=== PATIENT | male | born 1970 | race Caucasian/White ===

== ENCOUNTER 2017-04-20 10:28 | Outpatient (POV) | payer OTHER, SELFPAY | END 2017-04-20 12:05 | disposition home or self-care (01) | PROVIDERS: Visit Provider Podiatrist | DX: S92.504D Nondisplaced unspecified fracture of right lesser toe(s), subsequent encounter for fracture with routine healing (principal) | CPT/HCPCS: 99212; 73630 ==

== ENCOUNTER → 2017-05-25 08:07 | Outpatient (CLI) | payer OTHER, SELFPAY ==
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
== END ==
PROVIDERS: PCP Podiatrist; Visit Provider Podiatrist
DX: S92.504A Nondisplaced unspecified fracture of right lesser toe(s), initial encounter for closed fracture (principal)
CPT/HCPCS: 73630

== ENCOUNTER 2020-04-09 17:02 | Emergency (ER) | payer OTHER, SELFPAY ==
[2020-04-09 17:05] VITALS: BP 175/95; PULSE 92; RESP 16; TEMP 36.6; O2SAT 98; BMI 39.4
--- NOTE | 2020-04-09 17:34 | XR_ITS ---
PROCEDURE: XR HAND RT MIN 3V CLINICAL INDICATION: injury Pain COMPARISON: CR HANDR3 HAND-RT 3 VIEWS from 01/18/2015 FINDINGS: No fracture or dislocation. No lytic or blastic change. There is normal mineralization. The joint spaces are well-preserved. No significant degenerative/arthritic changes. No erosive changes evident. Other findings:None. IMPRESSION: No acute findings. Dictated by: Ronnell Mcmahon MD 04/09/2020 18:44 Ronnell Mcmahon MD in [place] 04/09/2020 18:44
--- NOTE | 2020-04-09 17:50 | XR_ITS ---
PROCEDURE: XR WRIST RT MIN 3V CLINICAL INDICATION: injury Posttraumatic pain COMPARISON: CR WRR3 WRIST-3 VIEWS-RT from 01/18/2015 CR XR HAND RT MIN 3V from 04/09/2020 FINDINGS: No fracture or dislocation. No lytic or blastic change. There is normal mineralization. The joint spaces are well-preserved. No significant degenerative/arthritic changes. No erosive changes evident. Other findings:None. IMPRESSION: No acute findings. Dictated by: Ronnell Mcmahon MD 04/09/2020 18:39 Ronnell Mcmahon MD in [place] 04/09/2020 18:39
--- NOTE | 2020-04-09 17:52 | HMH.EDGENADL ---
ED Disposition Clinical Impression: Subluxation of metacarpal (bone), proximal end of right hand, initial encounter Closed hamate fracture Qualifiers: Encounter type: initial encounter Hamate bone location: unspecified portion of hamate Fracture alignment: nondisplaced Laterality: right Qualified Code(s): S62.144A - Nondisplaced fracture of body of hamate [unciform] bone, right wrist, initial encounter for closed fracture Disposition: Home, Self-Care Condition on Discharge: Fair Instructions: DI for a Hand Fracture, How to Take Care of Your Splint Additional Instructions: Additional instructions for FRACTURE: Call [facility] hand surgery clinic tomorrow to make appointment for next Monday04/16/[address] Kala Washburn. You should make an appointment to be seen as soon as possible. Treat your splint like you would a cast: Do not get it wet (cover with a plastic bag while bathing or showering). If the splint feels too tight, you may loosen the connor wrap covering it, but do not remove the splint. You may ice the injury by applying an ice pack over the top of the splint, without removing the splint. Schedule an appointment to be seen at [facility] for follow-up. [phone] Return to an emergency department immediately if you have uncontrollable pain, loss of feeling or inability to move your injured extremity. Additional instructions for CONTROLLED SUBSTANCES: You have been prescribed a medication that is a controlled substance. Controlled substances include pain medications known as opiates and sedative nerve medications known as benzodiazepines. Tramadol, fioricet, and gabapentin are also controlled substances. Some common opiates include: Codeine (such as Tylenol #3) Hydrocodone (Vicodin, Lortab, Lorcet, [place]) Oxycodone (Percocet, Percodan, Oxycodone, Oxy IR) Some common benzodiazepines include: Diazepam (Valium) Lorazepam (Ativan) Alprazolam (Xanax) Clonazepam (Klonopin) Oxazepam (Serax) All of these controlled substances are highly addictive and frequently abused. Misuse can and frequently does lead to addiction as well as overdose and . Medication should be stored in a locked cabinet or other secure storage unit. Do not store the medication in a motor vehicle. Short term supplies, 3 days or less, are prescribed because of the highly addictive nature of the medication. Any of the controlled substance medication NOT taken should be disposed of properly and NOT SAVED. The recommended method of disposing of unused medications is: Place the medicines in a sealable plastic bag. If the medicine is a solid, crush it or add water to dissolve it. Add something undesirable (cat litter, coffee grounds, etc.) Dispose of sealed bag in household trash Do not flush or pour unused medicines down a sink or drain. Controlled substances should not be shared, given away or sold. Because of the addictive nature and frequent abuse, these medications are sometimes stolen. These medications should be kept in a safe place where they cannot be stolen. Do not keep them in your car or purse. Lost or stolen prescriptions for controlled substances WILL NOT BE REFILLED in this emergency department, regardless of whether a police report was filed. Prescriptions: Oxycodone HCl/Acetaminophen [Percocet 5/325mg tablet] 1 tab PO Q6HP PRN #20 tab PRN Reason: Moderate To Severe Pain Prescription Printed Referrals: Andrea Kirkland MD [Primary Care Provider] - - Critical Care Critical Care Time: No Attestation: On 04/09/20, the high probability of a clinically significant, sudden or life threatening deterioration of the following system(s) required my full and direct attention, intervention and personal management. The time I documented below is in addition to time spent performing reported procedures but includes the following listed in this critical care notation.
--- NOTE | 2020-04-09 18:01 | PC.NURSE ---
ice pack applied to rt hand
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
--- NOTE | 2020-04-09 20:03 | PC.NURSE ---
Calling [facility] MD's at this time.
[2020-04-09 20:05] VITALS: BP 164/94; PULSE 88; RESP 17; O2SAT 98
--- NOTE | 2020-04-09 20:25 | PC.NURSE ---
[facility] given call back number
[2020-04-09 20:30] VITALS: BP 159/89; PULSE 84; RESP 17; O2SAT 96
--- NOTE | 2020-04-09 20:37 | PC.NURSE ---
dr. aldridge is on the phone with at this time
[2020-04-09 20:46] VITALS: BP 164/82; PULSE 96; RESP 14; TEMP 36.6; O2SAT 97
--- NOTE | 2020-04-09 20:48 | PC.NURSE ---
dr. aldridge splinted the wrist. sling applied per md request
== END 2020-04-09 20:52 | disposition home or self-care (01) ==
PROVIDERS: Emergency Provider Emergency Medicine; PCP Internal Medicine Adolescent Medicine
DX: S62.144A Nondisplaced fracture of body of hamate [unciform] bone, right wrist, initial encounter for closed fracture (principal); W22.01XA Walked into wall, initial encounter; Y92.89 Other specified places as the place of occurrence of the external cause; I10 Essential (primary) hypertension; E78.5 Hyperlipidemia, unspecified; F17.210 Nicotine dependence, cigarettes, uncomplicated
CPT/HCPCS: 29125; 73110; 73130; 73200; 99283

== ENCOUNTER 2020-11-29 03:41 | Emergency (ER) | payer OTHER, SELFPAY ==
[2020-11-29 03:48] VITALS: BP 141/109; PULSE 88; RESP 16; TEMP 36.8; O2SAT 98; BMI 42.0
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
--- NOTE | 2020-11-29 04:30 | PC.NURSE ---
[place] [employer] here with pt
--- NOTE | 2020-11-29 05:47 | PC.NURSE ---
called radiology to check status of reports, [employer] operator will reach out to AD
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
--- NOTE | 2020-11-29 06:56 | PC.NURSE ---
received call from ana in rad who stated that [facility] radi[facility] was just now beginning to look at the scans.
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
--- NOTE | 2020-11-29 07:44 | PC.NURSE ---
abrasion to rt and lt knee, lt elbow and posterior scalp cleaned
[2020-11-29 07:45] VITALS: BP 155/74; PULSE 78; RESP 14; TEMP 36.6; O2SAT 96
== END 2020-11-29 07:53 | disposition home or self-care (01) ==
PROVIDERS: Emergency Provider Emergency Medicine
DX: S43.401A Unspecified sprain of right shoulder joint, initial encounter (principal); S06.0X0A Concussion without loss of consciousness, initial encounter; T74.11XA Adult physical abuse, confirmed, initial encounter; Y00.XXXA Assault by blunt object, initial encounter; E78.5 Hyperlipidemia, unspecified; I10 Essential (primary) hypertension; F17.210 Nicotine dependence, cigarettes, uncomplicated
CPT/HCPCS: 70450; 71046; 72125; 72170; 73030; 99283

== ENCOUNTER → 2020-12-23 15:35 | Outpatient (CLI) | payer OTHER, SELFPAY ==
--- NOTE | 2020-12-23 15:36 | MR_ITS ---
PROCEDURE: MR SHOULDER RT WO CON CLINICAL INDICATION: right shoulder pain; evaluate for rotator cuff COMPARISON: CR XR SHOULDER RT MIN 2V from 11/29/2020 TECHNIQUE: Routine multiplanar multi echo sequences are performed without gadolinium enhancement. FINDINGS: There is moderate acromioclavicular hypertrophy. There is severe subacromial stenosis at 3 mm. There is a high-riding humeral head. There is mild posterior subluxation of the humeral head is well. There is complete tear of the supraspinatus and infraspinatus tendons with retraction of the musculotendinous fibers. Subscapularis and teres minor tendons appear intact. Fluid is present within the bicipital tendon sheath. The long head of the biceps tendon does appear intact. The no obvious labral tear. There is a small shoulder joint effusion. Small amount fluid is present in the subdeltoid region. Small amount of fluid is interspersed in the infraspinatus muscle tendinous fibers with small amount fluid also noted in the subcoracoid region. IMPRESSION: Complete tears of the supraspinatus and infraspinatus tendons with retraction of the musculotendinous fibers Shoulder joint effusion with superior and mild posterior location of the humeral head. Tenosynovitis of the bicipital tendon Dictated by: Ronnell Mcmahon MD 12/24/2020 14:40 Ronnell Mcmahon MD in [place] 12/24/2020 14:40
== END ==
PROVIDERS: PCP Nurse Practitioner Family; Visit Provider Orthopaedic Surgery
DX: S49.91XA Unspecified injury of right shoulder and upper arm, initial encounter (principal)
CPT/HCPCS: 73221

== ENCOUNTER 2021-01-11 20:02 | Emergency (ER) | payer OTHER, SELFPAY ==
[2021-01-11 21:30] VITALS: BP 177/101; PULSE 75; RESP 20; TEMP 36.9; O2SAT 99; BMI 37.5
--- NOTE | 2021-01-11 22:29 | HMH.EDUTC ---
[facility] [place] Disposition Clinical Impression: Viral upper respiratory illness Disposition: Home, Self-Care Condition on Discharge: Good Instructions: DI for COVID-19 (Suspected or Confirmed ), Preventing the Spread of Coronavirus Discharge Instructions Additional Instructions: *Monitor Temp, Over the counter Motrin or Tylenol as directed/as needed Tylenol every 4 hours and Motrin every 6 hours (as long as your family doctor has told you that you can take it) for fever or pa-in. and straight to ER if unable to lower temp less than 101.0 after medication given *Warm salt water gargles may help to soothe the throat *Throat Lozenges *Warm fluids like tea with honey may help to soothe the throat *Sleep elevated *Humidifier/Vaporizer Your throat swab was sent for culture. Those results are typically sent to your primary care. Be sure to follow up in 2-3 days with your family doctor/primary care physician if no improvement so they can review those result and treat if necessary. If you don?t have a primary care doctor, I recommend you get one but in the mean time, you will have to return to a walk in clinic Follow up IMMEDIATELY for new or worsening symptoms or no Noticeable improvement over the next 48-72 hours. 911 for difficulty breathing or swallowing You were tested for today for COVID19 your test result should be back in the next 24-48 hours, Check the [facility] Portal to see if your test results are back in the next 48 it may say detected that means your result is positive.You was given handout instructions on how log on and see your results. If you do not have internet access you may call the [facility] for your results [phone] You was given a handout with instructions for Self Quarantine and Self isolation for while you wait on test results and what to do if they are positive If you are positive the Health Dept will be contacting you also Make sure to take your Vitamins Vit. C Vit D and Zinc if you can take them Prescriptions: guaiFENesin [Mucinex 600mg tablet] 1 - 2 tab PO BID PRN #10 tab PRN Reason: Congestion Transmission Status: Pending to [id number] Referrals: Provider,Referral, MD [Primary Care Provider] - As needed Forms: Work/School Release Time of Disposition: 22:51 Medical Decision Making - Felix Inquiry Pt receiving controlled substance: No Felix was queried for this patient: No Vital Signs: 01/11/21 21:30 Temperature 98.4 F Temperature Source Oral Pulse Rate [Left Brachial] 75 Respiratory Rate 20 Blood Pressure [Left Arm] 177/101 H Blood Pressure Mean [Left Arm] 126 Blood Pressure Source [Left Arm] Automatic Cuff Blood Pressure Position [Left Arm] Sitting 02 Sat by Pulse Oximetry 99 Oxygen Delivery Method Room Air - Lab Data Lab results reviewed: Yes: I reviewed the patient's lab results. Lab Results 01/11/21 22:32: Strep Scn Rapid Clinic Negative Orders (Tests/Meds): ORDERS Category Date Time Status Covid-19 Nasal PCR ([facility]) Routine Lab 01/11/21 21:35 Received Strep Screen Confirmation Stat Micro 01/11/21 22:32 Received Medical Decision Narrative: Patient blood pressure elevated discussed with patient about transfer to the ED for further evaluation and treatment and patient declined States that he was here for COVID test and had appointment tomorrow with PCP to have his blood pressure checked and treated Blood pressure rechecked and was 156/96 [facility] [place] HPI - General Stated complaint: covid test Time Seen by Provider: 01/11/21 22:30 Mode of Arrival: Ambulatory Source of Information: Patient Limitations: No Limitations Description of Symptoms (Recalled from Triage Doc. by RN): PATIENT C/O HEADACHE, SORE THROAT, AND COUGH SINCE MONDAY. REQUESTING COVID TEST HEENT Symptoms (Recalled from RN notes): Yes Resp Symptoms (Recalled from RN notes): Yes Skin Symptoms (Recalled from RN notes): No MS Symptoms (Recalled from RN notes): No Functional Status (Recalled from RN notes)
[2021-01-11 22:46] LABS: UTC Strep Screen (Rapid) Negative (Negative)
[2021-01-11 22:48] VITALS: BP 156/96
[2021-01-11 22:49] VITALS: BP 156/96; PULSE 75; RESP 20; TEMP 36.9; O2SAT 99
== END 2021-01-11 22:58 | disposition home or self-care (01) ==
PROVIDERS: Emergency Provider Nurse Practitioner
DX: U07.1 COVID-19 (principal); J06.9 Acute upper respiratory infection, unspecified; E78.5 Hyperlipidemia, unspecified; I10 Essential (primary) hypertension; F17.210 Nicotine dependence, cigarettes, uncomplicated; Z79.899 Other long term (current) drug therapy
CPT/HCPCS: 87880; 99203; G0463; U0003

== ENCOUNTER 2021-09-04 11:25 | Emergency (ER) | payer OTHER, SELFPAY ==
[2021-09-04 12:00] VITALS: BP 148/96; PULSE 118; RESP 18; TEMP 36.8; O2SAT 97; BMI 37.5
--- NOTE | 2021-09-04 12:08 | HMH.EDUTC ---
[facility] Clinical Impression: Viral syndrome Disposition: Home, Self-Care Condition on Discharge: Good Instructions: DI for Viral Syndrome Additional Instructions: Drink plenty of fluids. Take tylenol or ibuprofen for pain or fever. Take the medications as directed. Follow up with your regular doctor. GO TO THE ER FOR ANY WORSENING SYMPTOMS Prescriptions: Ondansetron [Zofran 4mg ODT] 4 mg PO Q8HP PRN #9 tab PRN Reason: Nausea Transmission Status: Received by [id number] Azithromycin [Z-Govind 250mg Tab*] 250 mg PO UD DOSE PK #6 tab Transmission Status: Received by [id number] Referrals: Provider,Referral, MD [Primary Care Provider] - Forms: Work/School Release Time of Disposition: 13:37 Medical Decision Making - Medical Records Medical records reviewed: No: I reviewed the patient's medical records. - Felix Inquiry Pt receiving controlled substance: No Vital Signs: 09/04/21 12:00 09/04/21 13:07 Temperature 98.3 F 98.3 F Temperature Source Oral Pulse Rate 118 H Pulse Rate [Left Radial] 118 H Respiratory Rate 18 18 Blood Pressure 148/96 H Blood Pressure [Right Arm] 148/96 H Blood Pressure Mean [Right Arm] 113 02 Sat by Pulse Oximetry 97 - Lab Data Lab results reviewed: Yes: I reviewed the patient's lab results. Lab Results 09/04/21 12:11: Group A Strep Rapid Negative 09/04/21 12:14: Influenza Type A Ag Negative, Influenza Type B Ag Negative 09/04/21 13:43: Chlamy pneumoniae PCR Not detected, Adenovirus (PCR) Not detected, B. pertussis DNA (PCR) Not detected, Coronavirus OC43 (PCR) Not detected, Coronavirus HKU1 (PCR) Not detected, Coronavirus 229E (PCR) Not detected, SARS-CoV-2 (PCR) Not detected, Coronavirus NL63 (PCR) Not detected, Human Metapneumovir PCR Not detected, Influenza A (H1) PCR Not detected, Influ A (H1N1/09) PCR Not detected, Influenza A (H3) PCR Not detected, Influenza Type A (PCR) Not detected, Influenza Type B (PCR) Not detected, M. pneumoniae (PCR) Not detected, Parainfluenza 1 (PCR) Not detected, Parainfluenza 2 (PCR) Not detected, Parainfluenza 3 (PCR) Not detected, Parainfluenza 4 (PCR) Not detected, RSV (PCR) Not detected, Entero/Rhino (PCR) Not detected Orders (Tests/Meds): ORDERS Category Date Time Status Strep Screen Confirmation Stat Micro 09/04/21 12:11 Received [facility] - General Stated complaint: fever, LLAMAS, weakness Time Seen by Provider: 09/04/21 12:08 Mode of Arrival: Ambulatory Description of Symptoms (Recalled from Triage Doc. by RN): pt states he overall feels sick. has not been around anyone that is sick. high fever, headache that will not go away. took tyleol, vitamin c and iron this am at 1030 HEENT Symptoms (Recalled from RN notes): Yes Resp Symptoms (Recalled from RN notes): No Skin Symptoms (Recalled from RN notes): No MS Symptoms (Recalled from RN notes): No Functional Status (Recalled from RN notes): wnl - History of Present Illness Provider Complaint: For the past 3 days he has had a cough, body aches, chills, and a headache. - Related Data Previous Rx's Medication Instructions Recorded naproxen 500 mg tablet 500 mg PO BID #30 tab 12/01/20 guaiFENesin [Mucinex 600mg tablet] 1 - 2 tab PO BID PRN #10 tab 01/11/21 hydrochlorothiazide 12.5 mg capsule 12.5 mg PO DAILY #30 cap 01/12/21 Azithromycin [Z-Govind 250mg Tab*] 250 mg PO UD DOSE PK #6 tab 09/04/21 Ondansetron [Zofran 4mg ODT] 4 mg PO Q8HP PRN #9 tab 09/04/21 Allergies Allergy/AdvReac Type Severity Reaction Status Date / Time No Known Allergies Allergy Verified 01/08/21 13:15 - Worker's Comp Is this a Worker's Comp case?: No Is this an [facility] Worker's Comp?: No Is this a [place] Worker's Comp?: No [facility] History - Hepatitis A Screen Drug use history?: No High risk sexual behaviors?: No History of sexually transmitted infection?: No Currently employed?: No Childcare worker?: No Do you have indoor plumbing?: Ye
[2021-09-04 12:31] LABS: UTC Influenza A Antigen Negative (Negative); UTC Influenza B Antigen Negative (Negative)
[2021-09-04 13:07] VITALS: BP 148/96; PULSE 118; RESP 18; TEMP 36.8
[2021-09-04 13:28] LABS: Strep Scrn Group A (Rapid) Negative (Negative)
[2021-09-04 13:56] LABS: Adenovirus,PCR Not Detected (NotDetected); Bordetella Pertussis Not Detected (NotDetected); Chlamydophila Pneumoniae, PCR Not Detected (NotDetected); Coronavirus 19, PCR Not Detected (NotDetected); Coronavirus 229E Not Detected (NotDetected); Coronavirus NL63 Not Detected (NotDetected); Coronavirus OC43 Not Detected (NotDetected); Coronovirus HKU1,PCR Not Detected (NotDetected); Human Metapneumovirus Not Detected (NotDetected); Influenza A, PCR Not Detected (NotDetected); Influenza AH1, 2009 Not Detected (NotDetected); Influenza AH1, PCR Not Detected (NotDetected); Influenza AH3,PCR Not Detected (NotDetected); Influenza B, PCR Not Detected (NotDetected); Mycoplasma Pneumoniae, PCR Not Detected (NotDetected); Parainfluenza 1, PCR Not Detected (NotDetected); Parainfluenza 2, PCR Not Detected (NotDetected); Parainfluenza 3, PCR Not Detected (NotDetected); Parainfluenza 4, PCR Not Detected (NotDetected); Respiratory Syncytial Virus Not Detected (NotDetected); Rhinovirus/Enterovirus Not Detected (NotDetected)
== END 2021-09-04 13:44 | disposition home or self-care (01) ==
PROVIDERS: Emergency Provider Nurse Practitioner Family
DX: B34.9 Viral infection, unspecified (principal); Z20.822 Contact with and (suspected) exposure to COVID-19; R51.9 Headache, unspecified; E78.5 Hyperlipidemia, unspecified; F17.210 Nicotine dependence, cigarettes, uncomplicated
CPT/HCPCS: 87430; 87581; 87632; 87798; 87804; 99213; C9803; G0463; U0003; U0005

== ENCOUNTER 2022-07-07 13:34 | Emergency (ER) | payer OTHER, SELFPAY ==
[2022-07-07 13:39] VITALS: BP 182/103; PULSE 91; RESP 16; TEMP 36.8; O2SAT 97; BMI 36.0
[2022-07-07 14:01] VITALS: BP 141/98; PULSE 78; O2SAT 95
--- NOTE | 2022-07-07 14:18 | PC.NURSE ---
Wound irrigated with Hibiclens/Saline. Pt tolerated well. Bleeding stopped without further intervention.
--- NOTE | 2022-07-07 14:26 | HMH.EDGENADL ---
Discharge Plan Disposition Patient Disposition: Home, Self-Care Prescriptions Prescriptions: No Action naproxen 500 mg tablet 500 mg PO BID Qty: 30 0RF hydrochlorothiazide 12.5 mg capsule 12.5 mg PO DAILY Qty: 30 1RF azithromycin 250 MG tablet 250 mg PO UD DOSE PK Qty: 6 0RF Rx Instructions: Take two (2) tablets today, then one (1) tablet days #2 thru #5 ondansetron 4 MG tablet,disintegrating 4 mg PO Q8HP PRN (Reason: Nausea) Qty: 9 0RF guaifenesin 600 MG tablet extended release 12hr 1 - 2 tab PO BID PRN (Reason: Congestion) Qty: 10 0RF Referrals Follow up/Referrals: Provider,Referral, MD [Primary Care Provider] - See instructions Activity Restrictions/Add. Instructions Additional Instructions/Restrictions: You had a soft tissue avulsion with significant venous oozing was treated with Surgicel. Please cut off any excessive Surgicel tonight when you are changing your dressings and otherwise keep a Band-Aid over top of this Surgicel naturally fall off. I would advise that you do not pull it off aggressively for the remainder of this night as you may be remove the clot formation that is formed and bleeding may return. If that happens please put direct pressure on the wound for 15 minutes and return to the emergency department if you are concerned about ongoing bleeding. Specifically this is not consistent with arterial bleeding and is a low pressure venous state. Clinical Impressions Clinical Impression: Avulsion of soft tissue of left lower leg Discharge ED Provider: Linda Duran General Adult HPI General Chief complaint: Extremity Injury, Lower Stated complaint: AO@Work 07/07 1300 LT leg puncture Time Seen by Provider: 07/07/22 14:26 Mode of Arrival: Ambulatory Source of Information: Patient Limitations: No Limitations Description of Symptoms (Recalled from ER Triage Doc. by RN): Presents after LLE injury d/t air conditioner approx. 20 min lpta. Bleeding controlled with pressure dressing. Denies blood thinners. Denies pain. Last Tetanus x 4 yrs. 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 Patient denies being on any anticoagulant or any antiplatelet therapy. No pain. Tetanus is unknown Related Data Previous Rx's Medication Instructions Recorded naproxen 500 mg tablet 500 mg PO BID #30 tabs 12/01/20 guaifenesin 600 mg tablet, 1 - 2 tab PO BID PRN Congestion 01/11/21 extended release 12 hr #10 tabs hydrochlorothiazide 12.5 mg capsule 12.5 mg PO DAILY #30 caps 01/12/21 azithromycin 250 mg tablet 250 mg PO UD DOSE PK #6 tabs 09/04/21 ondansetron 4 mg disintegrating 4 mg PO Q8HP PRN Nausea #9 tabs 09/04/21 tablet Allergies Allergy/AdvReac Type Severity Reaction Status Date / Time No Known Allergies Allergy Verified 01/08/21 13:15 [facility] Disclaimer: The information contained in this section may have been updated after the patient was seen, as this information can be updated by other users. Social History Smoking Status: Current every day smoker tobacco type: cigarettes packs per day: 1 alcohol intake: never substance use type: denies use current occupational status: employed Travel in the last 8 weeks: None ROS Obtained: Yes All systems reviewed & no additional complaints except as documented Physical Exam General General appearance: alert and in no apparent distress Respiratory Respiratory exam: Present normal lung sounds bilaterally; Absent respiratory distress, wheezes, stridor or accessory muscle use Cardiovascular Cardiovascular exam: Present regular rate; Absent tachycardia Extremities Exam Extremities exam:
[2022-07-07 14:31] VITALS: BP 158/92; PULSE 76; O2SAT 96
--- NOTE | 2022-07-07 14:34 | PC.NURSE ---
er at bedside
--- NOTE | 2022-07-07 14:35 | PC.NURSE ---
pt states no complaints at this time, at bedside
[2022-07-07 15:13] VITALS: BP 172/110; PULSE 67; RESP 15; TEMP 36.7
== END 2022-07-07 15:17 | disposition home or self-care (01) ==
PROVIDERS: Emergency Provider Student in an Organized Health Care Education/Training Program
DX: S81.812A Laceration without foreign body, left lower leg, initial encounter (principal); F17.210 Nicotine dependence, cigarettes, uncomplicated; W22.8XXA Striking against or struck by other objects, initial encounter; Z23 Encounter for immunization
CPT/HCPCS: 90471; 90715; 99283; 99284

== ENCOUNTER 2022-11-28 12:27 | Emergency (ER) | payer OTHER, SELFPAY ==
--- NOTE | 2022-11-28 12:28 | XR_ITS ---
FINAL REPORT CLINICAL HISTORY: FALL FINDINGS: 2 views of the left shoulder were obtained. There is no prior exam for comparison. There is no fracture or dislocation. There is mild degenerative joint disease. Soft tissues are normal. IMPRESSION: No acute osseous abnormality of the left shoulder. Reviewed, Interpreted and Dictated by Herminia Michaud MD Transcribed by Lilian Rondon Authenticated and [facility]
--- NOTE | 2022-11-28 12:30 | XR_ITS ---
FINAL REPORT CLINICAL HISTORY: FALL FINDINGS: LEFT CLAVICLE 2 views of the left clavicle were obtained. There is no acute fracture or dislocation. There are mild degenerative changes of the acromioclavicular joint. There is no evidence of AC joint separation. Soft tissues are without acute abnormality. IMPRESSION: No acute bony abnormality or evidence of AC joint separation. Reviewed, Interpreted and Dictated by Herminia Michaud MD Transcribed by Lilian Rondon Authenticated and [facility]
[2022-11-28 12:35] VITALS: BP 209/105; PULSE 88; RESP 20; TEMP 37.2; O2SAT 98; BMI 33.9
--- NOTE | 2022-11-28 13:23 | EXP.UTC ---
Discharge Plan Disposition Patient Disposition: Home, Self-Care Condition: Good Prescriptions Prescriptions: New hydrochlorothiazide 12.5 mg capsule 12.5 mg PO DAILY Qty: 30 0RF Rx Instructions: for hypertension No Action naproxen 500 mg tablet 500 mg PO BID Qty: 30 0RF hydrochlorothiazide 12.5 mg capsule 12.5 mg PO DAILY Qty: 30 1RF azithromycin 250 MG tablet 250 mg PO UD DOSE PK Qty: 6 0RF Rx Instructions: Take two (2) tablets today, then one (1) tablet days #2 thru #5 ondansetron 4 MG tablet,disintegrating 4 mg PO Q8HP PRN (Reason: Nausea) Qty: 9 0RF guaifenesin 600 MG tablet extended release 12hr 1 - 2 tab PO BID PRN (Reason: Congestion) Qty: 10 0RF Referrals Follow up/Referrals: Mitch Blue DO [Staff Physician] - See instructions (Call office for appointment) Provider,Referral, MD [Primary Care Provider] - See instructions Activity Restrictions/Add. Instructions Additional Instructions/Restrictions: Over the counter Tylenol may help with pain and discomfort *RICE, Rest the extremity, Ice 15-20 minutes 3-4 times daily, Compress- wear the connor wrap as discussed as much as possible to help reduce swelling and pain, Elevate the extremity when at rest *Sling is for support and help control swelling, use it except in the shower. Be sure that is not to tight but not to loose either *Elevate when resting? *Ibuprofen 600-800mg every 6-8 hours as needed for pain an inflammation. If need something more can take Tylenol in between doses of Ibuprofen to help Immediately follow up with your family doctor for new or worsening of symptoms, or no noticeable improvement over the next 3-5 days Follow up with Orthopedics and/or your Family Doctor for further evaluation and testing Follow up with your Family Doctor for further treatment of high blood pressure Clinical Impressions Clinical Impression: Left shoulder pain Qualifiers: Chronicity: unspecified Qualified Code(s): M25.512 - Pain in left shoulder Instructions Patient Instructions: How to Use a Sling, DI for Shoulder Pain Discharge ED Provider: Anali Rodrigues [facility] General Stated complaint: AO 11/21 fall, left shoulder pain Mode of Arrival: Ambulatory Source of Information: Patient Limitations: No Limitations Time Seen by Provider: 11/28/22 12:45 Description of Symptoms (Recalled from Triage Doc. by RN): PATIENT C/O LEFT SHOULDER PAIN AND DECREASED ROM SINCE FALLING APPROX 1 WEEK AGO. HEENT Symptoms (Recalled from RN notes): No Resp Symptoms (Recalled from RN notes): No Skin Symptoms (Recalled from RN notes): No MS Symptoms (Recalled from RN notes): Yes Functional Status (Recalled from RN notes): WNL History of Present Illness Provider Complaint: Patient states that he went to sit on a cooler last week and it turned over and he fell onto his left shoulder States that since the fall he has been having pain in his left shoulder and hurts when he tries to raise it up Denies any other injury States that also he was on medication for HTN but he had a change in insurance and he hasnt been back to the Doctor to get more Related Data Previous Rx's Medication Instructions Recorded naproxen 500 mg tablet 500 mg PO BID #30 tabs 12/01/20 guaifenesin 600 mg tablet, 1 - 2 tab PO BID PRN Congestion 01/11/21 extended release 12 hr #10 tabs hydrochlorothiazide 12.5 mg capsule 12.5 mg PO DAILY #30 caps 01/12/21 azithromycin 250 mg tablet 250 mg PO UD DOSE PK #6 tabs 09/04/21 ondansetron 4 mg disintegrating 4 mg PO Q8HP PRN Nausea #9 tabs 09/04/21 tablet hydrochlorothiazide 12.5 mg capsule 12.5 mg PO DAILY #30 caps 11/28/22 Allergies Allergy/AdvReac Type Severity Reaction Status Date / Time No Known Allergies Allergy Verified 01/08/21 13:15 Worker's Comp Is this a Worker's Comp case?: No [facility] Disclaimer: The information contained in this section may have been updated after the patient was seen,
[2022-11-28 13:54] VITALS: BP 209/105; PULSE 88; RESP 20; TEMP 37.2; O2SAT 98
== END 2022-11-28 14:17 | disposition home or self-care (01) ==
PROVIDERS: Emergency Provider Nurse Practitioner
DX: M25.512 Pain in left shoulder (principal); W17.89XA Other fall from one level to another, initial encounter; F17.210 Nicotine dependence, cigarettes, uncomplicated
CPT/HCPCS: 73000; 73030; 99212; 99214; G0463

== ENCOUNTER 2023-01-05 11:19 | Emergency (ER) | payer OTHER, SELFPAY ==
[2023-01-05 11:40] VITALS: BP 183/107; PULSE 70; RESP 18; TEMP 36.9; O2SAT 98; BMI 34.4
--- NOTE | 2023-01-05 12:13 | EXP.UTC ---
Discharge Plan Disposition Patient Disposition: Home, Self-Care Condition: Good Prescriptions Prescriptions: New bacitracin 500 unit/gram ointment 1 applic topical TID 10 Days Qty: 30 0RF Rx Instructions: apply to abrasion on hand No Action naproxen 500 mg tablet 500 mg PO BID Qty: 30 0RF hydrochlorothiazide 12.5 mg capsule 12.5 mg PO DAILY Qty: 30 1RF azithromycin 250 MG tablet 250 mg PO UD DOSE PK Qty: 6 0RF Rx Instructions: Take two (2) tablets today, then one (1) tablet days #2 thru #5 ondansetron 4 MG tablet,disintegrating 4 mg PO Q8HP PRN (Reason: Nausea) Qty: 9 0RF guaifenesin 600 MG tablet extended release 12hr 1 - 2 tab PO BID PRN (Reason: Congestion) Qty: 10 0RF hydrochlorothiazide 12.5 mg capsule 12.5 mg PO DAILY Qty: 30 0RF Rx Instructions: for hypertension Referrals Follow up/Referrals: Provider,Referral, MD [Primary Care Provider] - See instructions Activity Restrictions/Add. Instructions Additional Instructions/Restrictions: Suture instructions: ?You have required stitches Please read the following instructions so you know how to care for them: ?1. Keep wound area dry for the first 24 hours. 2?? May clean gently with mild soap and water, after 48 hours to prevent crusting over suture knots. 3. You may shower if your provider gives permission but do not take a bath until the skin is healed.. 4. Never leave a wet dressing or Band-Aid on your stitches as this allows bacteria to reach the area and may cause infection. Band-aids can cause the wound to sweat and not recommended to wear for long periods of time Watch for signs of infection: ? Increasing redness, tenderness or warmth around the suture site ? Unusual swelling around the site ? Appearance of pus around each suture or any red streaks ? Fever If you develop any of the above signs or symptoms of infection, Follow up with Family Physician immediately 5. Suture removal in _12-14___days 6. Return to [facility] or follow up with family doctor for removal. This can be done by any medical provider dur?ing regular hours on Monday through Monday, by appointment. Clinical Impressions Clinical Impression: Laceration Instructions Patient Instructions: DI for Laceration Repair, DI for Laceration Repair -- Simple, DI for Abrasion Discharge ED Provider: Anali Rodrigues [facility] [place] H[place] General Stated complaint: AO8@work, Lac above Lt knee Mode of Arrival: Ambulatory Source of Information: Patient Limitations: No Limitations Time Seen by Provider: 01/05/23 11:55 Description of Symptoms (Recalled from Triage Doc. by RN): PATIENT C/O LACERATION TO RIGHT LEG ABOVE KNEE AFTER CUTTING IT WITH A GLOBE CHANGER APPROX 30 MINUTES BEER BREWER HEENT Symptoms (Recalled from RN notes): No Resp Symptoms (Recalled from RN notes): No Skin Symptoms (Recalled from RN notes): Yes MS Symptoms (Recalled from RN notes): No Functional Status (Recalled from RN notes): WNL History of Present Illness Provider Complaint: Patient states that he was using a sweat box attendant cutting up a box and the sweat box attendant slipped and cut him on the top of his right knee States that also earlier today he got an an abrasion on the top of his right hand he wanted checked too Up to date on tetanus Related Data Previous Rx's Medication Instructions Recorded naproxen 500 mg tablet 500 mg PO BID #30 tabs 12/01/20 guaifenesin 600 mg tablet, 1 - 2 tab PO BID PRN Congestion 01/11/21 extended release 12 hr #10 tabs hydrochlorothiazide 12.5 mg capsule 12.5 mg PO DAILY #30 caps 01/12/21 azithromycin 250 mg tablet 250 mg PO UD DOSE PK #6 tabs 09/04/21 ondansetron 4 mg disintegrating 4 mg PO Q8HP PRN Nausea #9 tabs 09/04/21 tablet hydrochlorothiazide 12.5 mg capsule 12.5 mg PO DAILY #30 caps 11/28/22 bacitracin 500 unit/gram topical 1 applic topical TID 10 days #30 01/05/23 ointment grams Allergies Allergy/AdvReac Type Severity Reaction Status Jamir
--- NOTE | 2023-01-05 12:28 | PC.NURSE ---
WOUND TO RIGHT HAND CLEANED WITH HIBICLENSE AND STERILE WATER AND DRY, NON-STICK DRESSING APPLIED
[2023-01-05 12:36] VITALS: BP 183/107; PULSE 70; RESP 18; TEMP 36.9; O2SAT 98
== END 2023-01-05 12:39 | disposition home or self-care (01) ==
PROVIDERS: Emergency Provider Nurse Practitioner
DX: S81.011A Laceration without foreign body, right knee, initial encounter (principal); F17.210 Nicotine dependence, cigarettes, uncomplicated; Z23 Encounter for immunization; W26.0XXA Contact with knife, initial encounter
CPT/HCPCS: 12001; 99213; 99214; G0463

== ENCOUNTER 2023-06-05 11:51 | Emergency (ER) | payer OTHER, SELFPAY ==
--- NOTE | 2023-06-05 12:06 | ED_ITS ---
Discharge Plan Disposition Patient Disposition: Xfer Other Condition: Good Prescriptions Prescriptions: No Action hydrochlorothiazide 12.5 mg capsule 12.5 mg PO DAILY Qty: 30 0RF Rx Instructions: for hypertension Referrals Follow up/Referrals: Provider,Referral, MD [Primary Care Provider] - See instructions Activity Restrictions/Add. Instructions Additional Instructions/Restrictions: Go to the [facility] to be evaluated by Dr. Garcia. They want you to come straight there right now. GO TO THE ER FOR ANY WORSENING SYMPTOMS OR CONCERNS. Clinical Impressions Clinical Impression: Infection of left eye Discharge ED Provider: Nahid Chin [facility] [place] HPI General Stated complaint: left eye pain , no accident Time Seen by Provider: 06/05/23 12:05 History of Present Illness Provider Complaint: He states that he has had left eye pain and swelling around the eye for the past 4 days. He states that before the pain and swelling started he felt like he had a foreign body in his eye. Related Data Previous Rx's Medication Instructions Recorded hydrochlorothiazide 12.5 mg capsule 12.5 mg PO DAILY #30 caps 11/28/22 Allergies Allergy/AdvReac Type Severity Reaction Status Date / Time No Known Allergies Allergy Verified 06/05/23 12:19 [facility] Disclaimer: The information contained in this section may have been updated after the patient was seen, as this information can be updated by other users. Social History Smoking Status: Current every day smoker tobacco type: cigarettes packs per day: 1 alcohol intake: never substance use type: denies use current occupational status: employed Travel in the last 8 weeks: None ROS Obtained: Yes All systems reviewed & no additional complaints except as documented Constitutional Constitutional: Denies chills and Denies fever(s) Eyes Eyes: Reports as per HPI, Reports eye discharge, Denies loss of vision and Reports eye pain ENT Ears, Nose, Mouth, and Throat: Denies dizziness, Denies otalgia and Denies sore throat Cardiovascular Cardiovascular: Denies chest pain Respiratory Respiratory: Denies shortness of breath, Denies chest congestion, Denies cough, Denies stridor and Denies wheezing Gastrointestinal Gastrointestingal: Denies nausea or vomiting Musculoskeletal Musculoskeletal: Reports system reviewed and no additional complaints, except as documented and Denies arthralgias Integumentary/Breasts Skin/Breast: Denies rash Neurologic Neurologic: Denies dizziness, Denies loss of vision and Denies paresthesias Allergic/Immunologic Allergic/Immunologic: Denies wheezing Physical Exam General General appearance: alert and in no apparent distress Head Head exam: atraumatic, normocephalic and normal inspection Eye Eye exam: Present PERRL and EOMI Expanded Eye Exam Eyelids: left: erythema and right: normal inspection Pupils: Left: size (2), Right: size (2) and Bilateral: regular, round and reactive Sclera/Conjunctival: left: injection, exudate and tenderness and right: normal inspection ENT ENT exam: Present normal exam, normal oropharynx, mucous membranes moist, TM's normal bilaterally and normal external ear exam Neck Neck exam: Present normal inspection, full ROM and trachea midline; Absent meningismus or lymphadenopathy Chest Chest inspection: Present normal inspection and symmetric chest wall rise; Absent tenderness Respiratory Respiratory exam: Present normal lung sounds bilaterally; Absent respiratory distress Cardiovascular Cardiovascular exam: Present regular rate and normal rhythm; Absent JVD Abdominal Exam Abdominal exam: Present soft and normal bowel sounds; Absent distention, tenderness or guarding Extremities Exam Extremities exam: Present normal inspection, full ROM and normal capillary refill; Absent calf tenderness Back Exam Back exam: Present normal inspection; Absent tenderness Neurological Exam Neurological exam: Present alert and oriented X3 Psychiatric Psychiatric exam: Present normal affect and normal mood Skin Skin exam: Present warm, dry, intact and normal color Lymphatic Lymphatic Findings: no adenopathy Medical Decision Making Medical Records Medical records reviewed: No I reviewed the patient's medical records. Felix Inquiry Pt receiving controlled substance: No Medical Decision Narrative: I called Dr. Jiang's office and set up for him to be evaluated there. He is to be there by 1:00 pm. Patient and family is aware.
[2023-06-05 12:10] VITALS: BP 137/92; PULSE 93; RESP 18; TEMP 36.8; O2SAT 97; BMI 36.0
[2023-06-05 12:46] VITALS: BP 137/92; PULSE 93; RESP 18; TEMP 36.8; O2SAT 97
== END 2023-06-05 12:46 | disposition other institution (70) ==
PROVIDERS: Emergency Provider Nurse Practitioner Family
DX: H44.002 Unspecified purulent endophthalmitis, left eye (principal); H57.12 Ocular pain, left eye; F17.210 Nicotine dependence, cigarettes, uncomplicated
CPT/HCPCS: 99212; 99214; G0463

== ENCOUNTER 2023-06-05 14:01 | Emergency (ER) | payer SELFPAY ==
[2023-06-05 14:02] VITALS: BP 180/116; PULSE 89; RESP 20; TEMP 36.7; O2SAT 99; BMI 36.0
[2023-06-05 14:25] VITALS: BMI 34.0
[2023-06-05 14:38] LABS: Alanine Aminotransferase 18 U/L (12-78); Albumin Level 4.2 g/dl (3.5-5.0); Albumin/Globulin Ratio 1.1 (1.1-1.8); Alkaline Phosphatase 101 U/L (38-126); Anion Gap 10.9 mEq/L (5-15); Aspartate Amino Transferase 30 U/L (17-59); Bilirubin,Total 1.1 mg/dl (0.2-1.3); Blood Urea Nitrogen 13 mg/dl (9-20); Carbon Dioxide 27 mmol/L (22.0-30.0); Chloride 101 mmol/L (98-107); Creatinine Clearance Estimated 154 mL/min (50-200); Estimated Glomerular Filt Rate 100 ml/min (>60); GFR (African American) 121 ML/MIN (>60); Globulin 3.7 g/dL (1.3-3.2); Glucose 126 mg/dl (74-100); Potassium 3.9 mmoL/L (3.5-5.1); Sodium 135 mmol/L (136-145); Total Protein,Serum 7.9 g/dl (6.3-8.2)
[2023-06-05] MEDS: TETRACAINE 0.5% OPTH SOL 15ML OP (14:39)
[2023-06-05] MEDS: FLUORESCEIN SODIUM 1MG STRIP 1 MG OP (14:40)
[2023-06-05] MEDS: CEFTRIAXONE SODIUM 2 GM in 0.9 % SODIUM CHLORIDE 100 ML IV (14:43)
[2023-06-05 14:45] LABS: C-Reactive Protein 68.4 mg/L (0-4)
[2023-06-05 14:49] LABS: Basophils # 0.1 K/mm3 (0-0.2); Basophils % 0.4 % (0.1-2.0); Eosinophils # 0.1 K/mm3 (0.0-0.4); Eosinophils % 0.6 % (0.1-12.0); Hematocrit 49.7 % (42.0-52.0); Hemoglobin 16.5 g/dL (14.1-18.0); Lymphocytes # 2.1 K/mm3 (0.7-4.5); Lymphocytes % 17.6 % (10-50); Mean Corpuscular HGB Conc 33.2 g/dL (31.8-35.4); Mean Corpuscular Volume 93.5 fl (80-94); Mean Platelet Volume 7.2 fl (7.4-10.4); Monocytes # 0.7 K/mm3 (0.1-1.0); Monocytes % 6.2 % (1.7-9.3); Neutrophils % 75.2 % (37.0-80.0); Platelet Count 283 K/mm3 (142-424); Red Blood Count 5.32 M/mm3 (4.60-6.20); Red Cell Distribution Width 13.6 % (11.5-17.5); White Blood Count 11.9 K/mm3 (4.8-10.8)
[2023-06-05] MEDS: VANCOMYCIN HCL 2,000 MG in 0.9 % SODIUM CHLORIDE 250 ML 125 MG IV (14:55)
--- NOTE | 2023-06-05 14:58 | ED_ITS ---
Discharge Plan Disposition Patient Disposition: Xfer Short-Term Hosp Condition: Good Prescriptions Prescriptions: No Action hydrochlorothiazide 12.5 mg capsule 12.5 mg PO DAILY Qty: 30 0RF Rx Instructions: for hypertension Referrals Follow up/Referrals: Provider,Referral, [Primary Care Provider] - See instructions Activity Restrictions/Add. Instructions Additional Instructions/Restrictions: Please proceed directly to the [facility]. You will be seen in the emergency department there. [address] [place] [address] Clinical Impressions Clinical Impression: Cellulitis of left orbit Stand Alone Forms Stand Alone Forms: Transfer Record - ED Discharge ED Provider: Gita Carl General Adult HPI General Chief complaint: Eye Problems Stated complaint: left eye pain Time Seen by Provider: 06/05/23 14:05 Mode of Arrival: Ambulatory Source of Information: Patient Limitations: No Limitations Description of Symptoms (Recalled from ER Triage Doc. by RN): Patient reports he felt something in his left eye, Monday eye started to have some drainage, and monday eye started to swell. Patient reports pain in left eye. History of Present Illness HPI narrative: This patient is a 53-year-old male who denies significant past medical history presenting to the emergency department for evaluation with concern for left eye pain, redness, and swelling. Patient reports that he first felt foreign body sensation in his left eye approximately 4 days ago. Since then, he progressively developed worsening swelling, redness, and drainage. He notes purulent drainage. He states that he has significant pain in his left eye that is worse with extraocular movements. He denies any significant vision changes, however he does note that his vision seems to be yellow. He does not wear contacts and denies any prior ocular history. On medical review, he was evaluated at [facility] today and sent to ophthalmology. According to the patient, they do not take his insurance there so he came back to the ED. He denies any fevers, chills, or systemic symptoms. Related Data Previous Rx's Medication Instructions Recorded hydrochlorothiazide 12.5 mg capsule 12.5 mg PO DAILY #30 caps 11/28/22 Allergies Allergy/AdvReac Type Severity Reaction Status Date / Time No Known Allergies Allergy Verified 06/05/23 12:19 [facility] Disclaimer: The information contained in this section may have been updated after the patient was seen, as this information can be updated by other users. Social History Smoking Status: Current every day smoker tobacco type: cigarettes packs per day: 1 alcohol intake: never substance use type: denies use current occupational status: employed Travel in the last 8 weeks: None ROS Obtained: Yes All systems reviewed & no additional complaints except as do cumented Physical Exam General General appearance: alert and in no apparent distress Head Head exam: atraumatic and normocephalic Eye Eye exam: Present PERRL; Absent EOMI Expanded Eye Exam Eyelids: left: erythema and swelling eyelids and right: normal inspection Pupils: Bilateral: regular, round and reactive Sclera/Conjunctival: left: injection, exudate and tenderness and right: normal inspection Visual acuity (R) = 20/: 25 Visual acuity (L) = 20/: 40 With correction: No IOP (R) in mmH IOP (L) in mmH IOP measured with: [employer] Comment: Significant left conjunctival injection with chemosis. Significant pain with extraocular movements with limited extraocular movements of the left eye. Purulent drainage. Significant periorbital swelling and tenderness of the left eye. ENT ENT exam: Present normal exam, normal oropharynx, mucous membranes moist and normal external ear exam Neck Neck exam: Present normal inspection, full ROM and trachea midline; Absent tenderness Chest Chest inspection: Present normal inspection and symmetric chest wall rise; Absent tenderness Respiratory Respiratory exam: Present normal lung sounds bilaterally; Absent respiratory distress, wheezes, stridor or accessory muscle use Cardiovascular Cardiovascular exam: Present regular rate and normal rhythm Abdominal Exam Abdominal exam: Present soft; Absent distention, tenderness or guarding Extremities Exam Extremities exam: Present normal inspection, full ROM and normal capillary refill; Absent tenderness or edema Back Exam Back exam: Present normal inspection and full ROM; Absent tenderness Neurological Exam Neurological exam: Present alert, oriented X3, CN II-XII intact and normal gait; Absent motor sensory deficit Psychiatric Psychiatric exam: Present normal affect and normal mood Skin Skin exam: Present warm and dry Medical Decision Making Medical Records Medical records reviewed: Yes I reviewed the patient's medical records. Felix Inquiry Pt receiving controlled substance: No Vital Signs: 06/05/23 14:02 Temperature 98.1 F Temperature Source Oral Pulse Rate [Right Radial] 89 Respiratory Rate 20 Blood Pressure [Right Arm] 180/116 H Blood Pressure Mean [Right Arm] 137 Blood Pressure Source [Right Arm] Automatic Cuff Blood Pressure Position [Right Arm] Sitting 02 Sat by Pulse Oximetry 99 Oxygen Delivery Method Room Air Lab Data Lab results reviewed: Yes I reviewed the patient's lab results. Lab Results 06/05/23 14:23: WBC 11.9 H, RBC 5.32, Hgb 16.5, Hct 49.7, MCV 93.5, MCH 31.0, MCHC 33.2, RDW 13.6, Plt Count 283, MPV 7.2 L, Neut % (Auto) 75.2, Lymph % (Auto) 17.6, Hutchinson % (Auto) 6.2, Eos % (Auto) 0.6, Baso % (Auto) 0.4, Neut # (Auto) 9.0 H, Lymph # (Auto) 2.1, Hutchinson # (Auto) 0.7, Eos # (Auto) 0.1, Baso # (Auto) 0.1, ESR 13, Sodium 135 L, Potassium 3.9, Chloride 101, Carbon Dioxide 27, Anion Gap 10.9, BUN 13, Creatinine 0.80, Estimated Creat Clear 154, Estimated GFR 100, Est GFR ( Amer) 121, Glucose 126 H, Calcium 9.0, Total Bilirubin 1.1, AST 30, ALT 18, Alkaline Phosphatase 101, C-Reactive Protein 68.4 H, Total Protein 7.9, Albumin 4.2, Globulin 3.7 H, Albumin/Globulin Ratio 1.1 06/05/23 14:23 06/05/23 14:23 Orders (Tests/Meds): ED MEDICATIONS Generic Name Dose Route Start Last Admin Trade Name Freq PRN Reason Stop Dose Admin Vancomycin HCl 2,000 mg/ 250 mls @ 125 mls/hr 06/05/23 14:45 06/05/23 14:55 Sodium Chloride IV 06/05/23 16:44 125 mls/hr ONCE ONE Administration Sodium Chloride 10 ml 06/05/23 14:26 Sodium Chloride 0.9% 10ml Flush Syringe IV 07/05/23 14:25 NEEDED PRN Maintain IV Site Discontinued Medications Generic Name Dose Route Start Last Admin Trade Name Freq PRN Reason Stop Dose Admin Fluorescein Sodium 1 mg 06/05/23 14:38 06/05/23 14:40 Fluorescein Sodium 1mg Strip OP 06/05/23 14:39 1 mg ONCE ONE Administration Ceftriaxone Sodium 2 gm/ 100 mls @ 200 mls/hr 06/05/23 14:40 06/05/23 14:43 Sodium Chloride IV 06/05/23 15:09 200 mls/hr ONCE ONE Administration Ketorolac Tromethamine 15 mg 06/05/23 15:05 06/05/23 15:11 Ketorolac 30mg/Ml Vial IV 06/05/23 15:06 15 mg ONCE ONE Administration Miscellaneous 1 each 06/05/23 14:45 Vancomycin Consult Request NOTAPPLIC 07/05/23 14:44 CONSULT PHARMACY [facility] Morphine Sulfate 4 mg 06/05/23 15:05 06/05/23 15:11 Morphine 4mg/Ml Syringe IV 06/05/23 15:06 4 mg ONCE ONE Administration Ondansetron HCl 4 mg 06/05/23 15:05 06/05/23 15:11 Ondansetron 4mg/2ml Vial IV 06/05/23 15:06 4 mg ONCE ONE Administration Tetracaine HCl 1 - 2 ml 06/05/23 14:37 06/05/23 14:39 Tetracaine 0.5% Opth Sayra 15ml OP 06/05/23 14:38 2 ml ONCE ONE Administration ORDERS Category Date Time Status CT orbit BI w con Stat Cat Scan 06/05/23 14:07 Stop Req C-Reactive Protein Stat Lab 06/05/23 14:23 Completed Complete Blood Count Auto Diff Stat Lab 06/05/23 14:23 Completed Comprehensive Metabolic Panel Stat Lab 06/05/23 14:23 Completed Erythrocyte Sedimentation Rate Stat Lab 06/05/23 14:23 Completed Medical Decision Narrative: In summary, this patient is a 53-year-old male presenting to the Emergency Department for evaluation of significant left eye pain, swelling, and drainage. Differential diagnoses considered include but are not limited to periorbital cellulitis, orbital cellulitis, endophthalmitis, foreign body, abscess. Ruling out the most morbid conditions drove assessment. On exam, the patient is nontoxic-appearing with reassuring vitals. He does have significant swelling of his left eye with chemosis, pain with extraocular movements, and exudate. I favor orbital cellulitis at this time. Workup included CBC, CMP, ESR, CRP. Patient was given IV vancomycin and Rocephin as well as IV morphine, Zofran, and Toradol for symptomatic improvement. Pressures were checked and pressure in the affected left eye was 30 and the right eye was 24. He also has decreased vision in the left eye with 20/40. Labs demonstrated mild leukocytosis as well as elevated inflammatory markers with a CRP of 68.4. Given high concern for orbital cellulitis, I called and had an interactive discussion with [facility] ophthalmology Dr. Duran. He advised that he would like to see the patient there in the ED immediately. I notified the patient of this, and he is agreeable to transport. Given high risk for clinical decompensation including loss of his eyes/site and possible spread to his central nervous system, patient was transported by EMS. He was transported in stable condition. Critical Care Critical Care Time Critical Care Time: No
[2023-06-05] MEDS: ONDANSETRON 4MG/2ML VIAL 4 MG IV (15:11)
[2023-06-05] MEDS: MORPHINE 4MG/ML SYRINGE 4 MG IV (15:11)
[2023-06-05] MEDS: KETOROLAC 30MG/ML VIAL 15 MG IV (15:11)
--- NOTE | 2023-06-05 15:14 | PC.NURSE ---
Dr. Carl speaking with [facility] NP at for possible transfer
--- NOTE | 2023-06-05 15:15 | PC.NURSE ---
Dr. Carl speaking with [email or web address] at this time.
--- NOTE | 2023-06-05 15:17 | PC.NURSE ---
Visual Acuity completed L eye- 20/40, R eye- 20/25.
[2023-06-05 15:19] LABS: Erythrocyte Sedimentation Rate 13 mm/hr (0-20)
--- NOTE | 2023-06-05 15:19 | PC.NURSE ---
Pt accepted to [facility] per Jamil
--- NOTE | 2023-06-05 16:00 | PC.NURSE ---
PT IS GONNA GO TO [facility] ER VIA POV PT IS FINISHING UP HIS SINA L[place]
--- NOTE | 2023-06-05 16:07 | PC.NURSE ---
Called report to [facility], Report given to EDMUND Kerr. Vanc is finishing infusing at this time and IV will be D/C and patient will transport via private car.
[2023-06-05 17:00] VITALS: BP 154/87; PULSE 88; RESP 18; TEMP 36.6; O2SAT 100
== END 2023-06-05 17:02 | disposition short-term general hospital (02) ==
PROVIDERS: Emergency Provider Emergency Medicine
DX: H05.012 Cellulitis of left orbit (principal); H57.12 Ocular pain, left eye; F17.210 Nicotine dependence, cigarettes, uncomplicated; D72.829 Elevated white blood cell count, unspecified; R79.82 Elevated C-reactive protein (CRP)
CPT/HCPCS: 80053; 85025; 85651; 86140; 96365; 96375; 99285; J0696; J2405; J3370

== ENCOUNTER 2024-04-10 15:30 | Outpatient (CLI) | payer OTHER, SELFPAY ==
[2024-04-10 19:07] LABS: Basophils % 0.8 % (0.1-2.0); Eosinophils # 0.2 K/mm3 (0.0-0.4); Eosinophils % 3.9 % (0.1-12.0); Hemoglobin 16.5 g/dL (14.1-18.0); Lymphocytes # 1.8 K/mm3 (0.7-4.5); Lymphocytes % 32.2 % (10-50); Mean Corpuscular HGB Conc 34.5 g/dL (31.8-35.4); Mean Corpuscular Hemoglobin 32.3 pg (27.0-31.2); Mean Corpuscular Volume 93.6 fl (80-94); Mean Platelet Volume 7.9 fl (7.4-10.4); Monocytes # 0.4 K/mm3 (0.1-1.0); Monocytes % 6.8 % (1.7-9.3); Neutrophils # 3.2 K/mm3 (1.8-7.8); Neutrophils % 56.3 % (37.0-80.0); Platelet Count 306 K/mm3 (142-424); Red Blood Count 5.13 M/mm3 (4.60-6.20); Red Cell Distribution Width 13.3 % (11.5-17.5); White Blood Count 5.6 K/mm3 (4.8-10.8)
[2024-04-10 20:09] LABS: Alanine Aminotransferase 16 U/L (12-78); Albumin Level 4.3 g/dl (3.5-5.0); Albumin/Globulin Ratio 1.7 (1.1-1.8); Alkaline Phosphatase 47 U/L (38-126); Anion Gap 11.8 mEq/L (5-15); Aspartate Amino Transferase 34 U/L (17-59); Bilirubin,Total 0.7 mg/dl (0.2-1.3); Blood Urea Nitrogen 16 mg/dl (9-20); Calcium 9.2 mg/dl (8.4-10.2); Carbon Dioxide 30 mmol/L (22.0-30.0); Chloride 104 mmol/L (98-107); Chol/HDL Ratio 3.2 (1-3.5); Cholesterol 246 mg/dl (140-200); Estimated Glomerular Filt Rate 117 ml/min (>60); GFR (African American) 142 ML/MIN (>60); Globulin 2.6 g/dL (1.3-3.2); Glucose 85 mg/dl (74-100); HDL Cholesterol 77 mg/dl (40-60); Potassium 4.8 mmoL/L (3.5-5.1); Sodium 141 mmol/L (136-145); Total Protein,Serum 6.9 g/dl (6.3-8.2); Triglycerides 78 mg/dl (30-150); VLDL Cholesterol 16 mg/dL (0-40)
[2024-04-10 20:20] LABS: NT Pro Brain Natriuretic Pep. 398 pg/mL (0-125)
[2024-04-10 20:29] LABS: C-Reactive Protein 1.4 mg/L (0-4); Direct LDL Cholesterol 161.53 mg/dL (100-129)
[2024-04-10 20:31] LABS: 25-OH Vitamin D, Total 19.1 ng/mL (30-100)
[2024-04-10 20:41] LABS: Prostate Specific Ag Screen 0.2 ng/ml (0.0-4.0); Thyroid Stimulating Hormone 0.25 uIU/mL (0.465-4.68)
[2024-04-10 21:40] LABS: HIV (1&2) Antibody Rapid NONREACTIVE (NONREACTIVE)
[2024-04-13 03:36] LABS: HCV Ab Non Reactive (Non Reactive)
== END 2024-04-10 23:59 | disposition home or self-care (01) ==
LOC: LAB.DROPOF 04-12 09:37
PROVIDERS: PCP Family Medicine; Visit Provider Family Medicine
DX: I10 Essential (primary) hypertension (principal); Z11.59 Encounter for screening for other viral diseases; Z72.0 Tobacco use
CPT/HCPCS: 80050; 80053; 80061; 82306; 83880; 84443; 85025; 86140; 86803; 87389; G0103

== ENCOUNTER 2024-04-19 06:30 | Day surgery (SDC) | payer OTHER, SELFPAY ==
[2024-04-16 13:55] VITALS: BMI 36.0
[2024-04-19 06:42] VITALS: BP 172/107; PULSE 94; RESP 18; TEMP 36.2; O2SAT 99
[2024-04-19] MEDS: LIDOCAINE 1% 20ML MDV 20 ML (07:20)
[2024-04-19 08:00] VITALS: BP 164/106; PULSE 88; RESP 18; TEMP 36.8; O2SAT 97
--- NOTE | 2024-04-19 08:00 | EXP.OP.NOTE ---
Date of procedure: 04/19/24 Pre-op Diagnosis:: Right facial cheek skin lesion (1 cm) Post-op Diagnosis:: Same Procedure performed:: Excision of 1 cm right facial cheek skin lesion Surgeon:: Cali Mcgovern MD Anesthesia: local Estimated blood loss (mL): 5 Operative findings:: Lesion excised in toto with at least 1 mm margin Operative note:: After informed consent was obtained the patient was taken to the procedure room. His right facial cheek region was prepped and draped in a sterile fashion. After infiltration with local anesthetic an elliptical incision was made around the lesion. The lesion was excised in toto and passed off for pathologic evaluation after being marked for margin (short superior/long lateral). Thermal cautery was utilized to achieve hemostasis. Skin was reapproximated with a combination of running 6-0 nylon and interrupted 6-0 nylon in a mattress fashion. Dressings were applied and the patient was discharged home in stable condition. Condition: stable Disposition: no change Specimens:: Right facial cheek skin lesion Complications:: No immediate
[2024-04-19 08:16] VITALS: BP 177/109
== END 2024-04-19 08:15 | disposition home or self-care (01) ==
PROVIDERS: Visit Provider Surgery
PROC: (CPT 11642; principal; 2024-04-19 07:30)
DX: C44.319 Basal cell carcinoma of skin of other parts of face (principal)
CPT/HCPCS: 11642